=== PATIENT | male | born 1965 | race Caucasian/White ===

== ENCOUNTER 2016-06-09 07:54 | Day surgery (SDC) | payer OTHER ==
[2016-06-09 09:42] VITALS: BP 110/68; PULSE 60; RESP 20; TEMP 97; O2SAT 99
== END 2016-06-09 09:50 | disposition home or self-care (01) | DRG 951 ==
LOC: SURG 07:54
PROVIDERS: ATTEND Surgery
DX: Z12.11 Encounter for screening for malignant neoplasm of colon (principal)
CPT/HCPCS: J2001